=== PATIENT | female | born 1950 | race Caucasian/White ===

== ENCOUNTER 2025-06-01 16:52 | Emergency (ER) | payer OTHER, SELFPAY ==
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
[2025-06-01 17:11] VITALS: BP 185/81; PULSE 98; RESP 16; TEMP 36.2; O2SAT 96; BMI 24.8
[2025-06-01 17:58] LABS: MANUAL DIFF FLAG NO
[2025-06-01 18:01] LABS: Hematocrit 43.1 % (37.0-47.0); Hemoglobin 14.7 g/dl (12.0-16.0); Imm Gran Abs Auto 0.02 X10*3/uL (0.00-0.03); Imm Gran Pct Auto 0.3 % (0.0-0.4); Lymphocytes Absolute Auto 1.8 X10*3/uL (1.2-4.9); Mean Corpuscular HGB Conc 34.1 g/dl (31.0-35.0); Mean Corpuscular Hemoglobin 29.5 pg (27.0-33.0); Mean Corpuscular Volume 86.4 fL (80.0-98.0); NRBC Abs Auto 0.000 X10*3/uL (0.0-0.012); NRBC Pct Auto 0.0 /100WBC (0.0-0.2); Platelet Count 254 X10*3/uL (160-400); Red Blood Count 4.99 X10*6/uL (4.20-5.50); White Blood Count 6.6 X10*3/uL (4.8-10.8)
[2025-06-01 18:07] LABS: INTERNATIONAL NORM RATIO 1.0 (0.9-1.1); Prothrombin Time 12.2 SEC (11.2-13.5)
[2025-06-01 18:18] LABS: Anion Gap 12 (12-20); Blood Urea Nitrogen 18 mg/dL (9-16); Calcium 9.9 mg/dL (8.4-10.2); Carbon Dioxide 28 mmol/L (22-29); Chloride 106 mmol/L (96-108); Creatinine Clr Calc Pharmacy 52.5; Estimated Glomerular Filt Rate > 60; Potassium 3.7 mmol/L (3.3-5.1); Sodium 142 mmol/L (135-145)
--- OUTSIDE RECORDS SUMMARY | 2025-06-01 20:19 | XMS_ITS | Encounter Summary ---
Author Organization [facility] Address [address] [facility] [address] [place] [address] Phone Care Team Providers Care Switch Coupler Name Role Phone Kamila Novak Primary Care Provider Encounter Details Date Type Department Care Team (Late Contact Info) Description 12/22/2020 Orders Only [facility] [address] [facility] [address] [place] [phone] Dane Davis MD [address] [address] Ischemic nephropathy (HCC); Hypertension; Obstructive sleep apnea syndrome; Nonadherence to medical treatment; Overweight; Localized edema; Renovascular hypertension; Hypertensive heart disease without congestive heart failure; Chronic kidney disease stage 2 Social History Tobacco Use Types Packs/Day Years Used Date Smoking Tobacco: Never Smokeless Tobacco: Never Alcohol Use Standard Drinks/Week Comments No 0 (1 standard drink = 0.6 oz pur e alcohol) Comments Unknown Sex and Gender Information Value Date Recorded Sex Assigned at Not on file Legal Sex Female 5:15 PM EST Gender Identity Not on file Sexual Orientation Not on file documented as of this encounter Plan of Treatment Upcoming Encounters Date Type Department Care Team (Late st Contact Info) Description 06/28/2025 2:30 PM EST Office Visit [facility] [address] [facility] [address] [place] [address] Rachel Singh ARNP [address] [phone] documented as of this encounter Procedures Procedure Name Priority Date/Time Associated Diagnosis Comments VITAMIN D 25 HYDROXY Routine 01/01/2021 10:44 AM EDT Ischemic nephropathy (HCC) Hypertension Obstructive sleep apnea syndrome Nonadherence to medical treatment Overweight Localized edema Renovascular hypertension Hypertensive heart disease without congestive heart failure Chronic kidney disease stage 2 CBC AND DIFFERENTIAL Routine 01/01/2021 10:44 AM EDT Ischemic nephropathy (HCC) Hypertension Obstructive sleep apnea syndrome Nonadherence to medical treatment Overweight Localized edema Renovascular hypertension Hypertensive heart disease without congestive heart failure Chronic kidney disease stage 2 URIC ACID Routine 01/01/2021 10:44 AM EDT Ischemic nephropathy (HCC) Hypertension Obstructive sleep apnea syndrome Nonadherence to medical treatment Overweight Localized edema Renovascular hypertension Hypertensive heart disease without congestive heart failure Chronic kidney disease stage 2 PTH, INTACT Routine 01/01/2021 10:44 AM EDT Ischemic nephropathy (HCC) Hypertension Obstructive sleep apnea syndrome Nonadherence to medical treatment Overweight Localized edema Renovascular hypertension Hypertensive heart disease without congestive heart failure Chronic kidney disease stage 2 MAGNESIUM Routine 01/01/2021 10:44 AM EDT Ischemic nephropathy (HCC) Hypertension Obstructive sleep apnea syndrome Nonadherence to medical treatment Overweight Localized edema Renovascular hypertension Hypertensive heart disease without congestive heart failure Chronic kidney disease stage 2 RENAL FUNCTION PANEL Routine 01/01/2021 10:44 AM EDT Ischemic nephropathy (HCC) Hypertension Obstructive sleep apnea syndrome Nonadherence to medical treatment Overweight Localized edema Renovascular hypertension Hypertensive heart disease without congestive heart failure Chronic kidney disease stage 2 PROTEIN / CREATININE RATIO, URINE Routine 01/01/2021 10:43 AM EDT Ischemic nephropathy (HCC) Hypertension Obstructive sleep apnea syndrome Nonadherence to medical treatment Overweight Localized edema Renovascular hypertension Hypertensive heart disease without congestive heart failure Chronic kidney disease stage 2 documented in this encounter Results * Vitamin D 25 Hydroxy (01/01/2021 10:44 AM EDT) [facility] Vitamin D, 25-Hydroxy 25.2 (20-50) NG/ML [facility] Comment: Testing performed or reported by [facility], a Service of [address] [address] Sherif Tolbert MD, Electrical Sign Servicer Blood specimen (specimen) Venous blood / Unknown 01/01/2021 10:44 AM EDT 01/01/2021 10:47 AM EDT Dane Davis MD LAB BLOOD ORDERABLES Final Re sult Performing Organization Address [facility]/ZIP Co de Phone Number [facility] * Uric Acid (01/01/2021 10:44 AM EDT) [facility] Uric Acid 4.6 (1.6-7.6) MG/DL [facility] Comment: Testing performed or reported by [facility], a Service of [facility], [address] [place] [id number] Sherif Tolbert MD, Electrical Sign Servicer Blood specimen (specimen) Venous blood / Unknown 01/01/2021 10:44 AM EDT 01/01/2021 10:47 AM EDT Dane Davis MD LAB BLOOD ORDERABLES Final Re sult Performing Organization Address [facility]/ZIP Co de Phone Number [facility] * (ABNORMAL) Renal Function Panel (01/01/2021 10:44 AM EDT) [facility] Glucose 101(H) (70-99) MG/DL [facility] BUN 12 (8-23) MG/DL [facility] Creatinine 0.7 (0.5-1.0) MG/DL [facility] Sodium 141 (133-145) MMOL/L [facility] Potassium 4.4 (3.6-5.2) MMOL/L [facility] Chloride 104 (98-107) MMOL/L [facility] Bicarbonate (CO2) 25 (22-29) MMOL/L [facility] Anion Gap 12 (4-17) [facility] Albumin 4.4 (3.4-4.8) GM/DL [facility] Calcium 9.6 (8.6-10.5) MG/DL [facility] Phosphorus, Serum 3.4 (2.5-4.5) MG/DL [facility] Est GFR Non 83 ML/MIN/1.7 3 M2 [facility] Comment: Creatinine based estimated glomerular filtration rate (eGFR) is calculated using the Chronic Kidney Disease Epidemiology Collaboration (CKD-EPI). The CKD-EPI creatinine equation has not been validated in children (<18 years), women or in some racial or ethnic subgroups other than Caucasians and Americans. EST GFR 97 ML/MIN/1.7 3 M2 [facility] Comment: Creatinine based estimated glomerular filtration rate (eGFR) is calculated using the Chronic Kidney Disease Epidemiology Collaboration (CKD-EPI). The CKD-EPI creatinine equation has not been validated in children (<18 years), women or in some racial or ethnic subgroups other than Caucasians and Americans. Testing performed or reported by [facility], a Service of [facility], [address] [place] [phone] Sherif Tolbert MD, Electrical Sign Servicer Blood specimen (specimen) Venous blood / Unknown 01/01/2021 10:44 AM EDT 01/01/2021 10:47 AM EDT Result [facility] Dane Davis MD LAB BLOOD ORDERABLES Final Re sult Performing Organization Address [facility] de Phone Number [facility] * PTH, Intact (01/01/2021 10:44 AM EDT) PTH, Intact 61 (15-65) PG/ML [facility] Comment: Testing performed or reported by [facility], a Service of [facility], [address] [place] [id number] Sherif Tolbert MD, Electrical Sign Servicer Blood specimen (specimen) Venous blood / Unknown 01/01/2021 10:44 AM EDT 01/01/2021 10:47 AM EDT us Dane Davis MD LAB BLOOD ORDERABLES Final Re sult Performing Organization Address City/[facility] Co de Phone Number [facility] * Magnesium (01/01/2021 10:44 AM EDT) Pathologist [facility] Magnesium 2.1 (1.6-2.3) mg/dL [facility] Comment: Testing performed or reported by [facility], a Service of [facility], [address] [place] [id number] Sherif Tolbert MD, Electrical Sign Servicer Blood specimen (specimen) Venous blood / Unknown 01/01/2021 10:44 AM EDT 01/01/2021 10:47 AM EDT us Dane Davis MD LAB BLOOD ORDERABLES Final Re sult [facility] * (ABNORMAL) CBC and Differential (01/01/2021 10:44 AM EDT) [facility] White Blood Cells 7.9 (4.0-11.0) K/MM3 [facility] RBC 4.59 (4.20-5.40 ) M/MM3 [facility] Hgb 10.8(L) (11.7-15.5 ) GM/DL [facility] Hematocrit 35.7 (35.7-45.8 ) % [facility] MCV 77.8(L) (80.0-100. 0) [place] [facility] MCH 23.5(L) (27.0-34.0 ) PG [facility] MCHC 30.3(L) (33.0-37.0 ) g/dL [facility] Platelets 310 (150-460) K/MM3 [facility] RDW-SD 44.9 (<47.0) [place] [facility] MPV 12.7(H) (9.4-12.4) [place] [facility] nRBC Count 0.0 #/100 WBC'S [facility] NRBC Absolute 0.0 K/MM3 [facility] Neutrophils Abs Auto 4.8 (1.3-7.0) K/MM3 [facility] Lymphocytes Relative 2.3 (0.8-3.1) K/MM3 [facility] Monocytes 0.5 (0.4-0.9) K/MM3 [facility] Eosinophils Relative 0.1 (0.0-0.4) K/MM3 [facility] Basophil ABS 0.1 (0.0-0.1) K/MM3 [facility] Granulocytes Absolute 0.0 K/MM3 [facility] Neutrophils % Auto 61.3 (44-76) % [facility] Lymphs 29.4 (15-43) % [facility] Monocytes Absolute 6.7 (4.5-10.5) % [facility] Eosinophils 1.4 (0-6) % [facility] Basophils Relative 0.9 (0-2) % [facility] Immature Granulocytes 0.3 % [facility] Comment: Testing performed or reported by [facility], a Service of [address] [id number] Sherif Tolbert MD, Electrical Sign Servicer Blood specimen (specimen) Venous blood / Unknown 01/01/2021 10:44 AM EDT 01/01/2021 10:47 AM EDT Dane Davis MD LAB BLOOD ORDERABLES Final Re sult Performing Organization Address [facility] de Phone Number [facility] * Protein, Total, Random Urine w/Creatinine (Protein/Creat Ratio) (01/01/2021 10:43 AM EDT) Protein/Creatin e Ratio 0.07 (0-0.2) [facility] Protein, Urine 14 MG/DL [facility] Creatinine, Urine 199.1 MG/DL [facility] Comment: Testing performed or reported by [facility], a Service of [address] [phone] Sherif Tolbert MD, Electrical Sign Servicer Urine specimen (specimen) Urine specimen obtained by clean catch procedure / Unknown 01/01/2021 10:43 AM EDT 01/01/2021 10:47 AM EDT us Dane Davis MD LAB URINE ORDERABLES Final Re sult Performing Organization Address [facility] Co de Phone Number [facility] documented in this encounter Visit Diagnoses Diagnosis Ischemic nephropathy (HCC) Hypertension Obstructive sleep apnea syndrome Nonadherence to medical treatment Overweight Localized edema Renovascular hypertension Hypertensive heart disease without congestive heart failure Chronic kidney disease stage 2 documented in this encounter Care Teams Switch Coupler Relationship Specialty Start Date End Date Kamila Novak [address] [place] [id number] PCP - General 08/16/24 documented as of this encounter
--- OUTSIDE RECORDS SUMMARY | 2025-06-01 20:19 | XMS_ITS | Encounter Summary ---
Author Organization [facility] Address [address] [place] [address] Phone Care Team Providers Care Tour Director Name Role Phone Kamila Novak Primary Care Provider [phone] Encounter Details Date Type Department Care Team (Late st Contact Info) Description 08/16/2024 Documentation Only [facility], [address] [place] [phone] [place], [place] [address] [place] [address] Social History Tobacco Use Types Packs/Day Years [...] Visit [facility] [address] [address] Rachel Singh ARNP [address] [address] documented as of this encounter Visit Diagnoses Not on filedocumented in this encounter Care Teams Tour Director Relationship Specialty Start Date End Date Kamila Novak [address] [place] [id number] PCP - General 08/16/24 documented as of this encounter
--- OUTSIDE RECORDS SUMMARY | 2025-06-01 20:19 | XMS_ITS | Clinical Summary ---
Author Organization [facility] Address [address] [facility] [address] [place] [address] Phone Care Team Providers Care Quality Checker Name Role Phone Kamila Novak Primary Care Provider [phone] Allergies Active Allergy Reactions Criticality Noted Date Comments Amlodipine Rash Medium 10/21/2020 Aspirin 10/21/2020 Carvedilol 10/21/2020 Clopidogrel 10/21/2020 Codeine 10/21/2020 Iodinated Contrast Media 10/21/2020 Metoprolol 10/21/2020 Penicillins 10/21/2020 Prednisone 10/21/2020 Acetaminophen-Codeine 10/21/2020 Medications albuterol HFA (ProAir HFA) 108 (90 Base) MCG/ACT inhaler Comments: Filled Date: Sep 15 2014 12:00AM Patient Notes: INL 2 PUFFS PO QID PRF WHEEZING Duration: 25 01/01/2014 Active meclizine (ANTIVERT) 25 MG tablet Take 1 tablet by mouth 2 (two) times a day Active omeprazole (PriLOSEC) [address] capsule Take 1 capsule by mouth 2 (two) times a day Active spironolactone (ALDACTONE) 25 MG tablet Take 1 tablet by mouth 1 (one) time each day 05/09/2019 Active atorvastatin (LIPITOR) 40 MG tablet TAKE 1 TABLET BY MOUTH DAILY AT BEDTIME 08/24/2020 Active cloNIDine (CATAPRES) 0.1 MG tablet Take 1 tablet (0.1 mg total) by mouth 3 times a day 270 tablet 3 10/22/2020 Active sertraline (ZOLOFT) 50 MG tablet TAKE 1 TABLET BY MOUTH DAILY LABEL ALL SCRIPTS IN [place] 12/03/2020 Active amLODIPine (NORVASC) 10 MG tablet TAKE 1 TABLET BY MOUTH EVERY DAY 90 tablet 3 08/17/2021 Active lisinopril 40 MG tablet TAKE 1 TABLET BY MOUTH EVERY DAY 91 tablet 3 08/17/2021 Active Acetaminophen 325 MG capsule Take 325 mg by mouth 06/19/2021 Active Active Problems Problem Noted Date Diagnosed Date Ischemic nephropathy 10/22/2020 Obstructive sleep apnea syndrome 10/22/2020 Patient's noncompliance with other medical treatment and regimen due to unspecified reason 10/22/2020 Overweight 10/22/2020 Chronic kidney disease stage 2 10/21/2020 Hypertension 10/21/2020 Localized edema 10/21/2020 Renovascular hypertension 10/21/2020 Resolved Problems Problem Noted Date Diagnosed Date Resolved Date Essential hypertension 10/21/202010/22 Hypertensive heart disease w [facility] congestive heart failure 10/21/2020 02/03/2021 Immunizations Immunization Administration Dates Next Due Influenza Split High Dose Preservative Free IM 0 08/30/2007 Pneumococcal Polysaccharide 08/30/2007 Tdap 09/27/2007 Family History Medical History Relation Comments Heart disease Mother [place] Hypertension Mother Diabetes Sibling 1 2 brothers Hypertension Sibling 2 2 brother Heart disease Sibling 3 2 brothers Relation Status Comments Father Mother Sibling 1 Sibling 2 Sibling 3 Social History Tobacco Use Types Packs/Day Years Used Date Smoking Tobacco: Never Smokeless Tobacco: Never Alcohol Use Standard Drinks/Week Comments No 0 (1 standard drink = 0.6 oz pur e alcohol) Comments Unknown Sex and Gender Information Value Date Recorded Sex Assigned at Not on file Legal Sex Female 5:15 PM EST Gender Identity Not on file Sexual Orientation Not on file Last Filed Vital Signs Vital Sign Reading Time Taken Comments Blood Pressure 130/80 09/10/2021 10:57 AM EDT Pulse 74 09/10/2021 10:57 AM EDT Temperature - - Respiratory Rate - - Oxygen Saturation 94% 09/10/2021 10:57 AM EDT Inhaled Oxygen Concentration - - Weight 73.8 kg (162 lb 9.6 oz) 09/10/2021 10:57 AM EDT Height 160 cm (5' 3 ) 03/12/2021 9:22 AM EDT Body Mass Index 28.8 03/12/2021 9:22 AM EDT Plan of Treatment Upcoming Encounters Date Type Department Care Team (Late st Contact Info) Description 06/28/2025 2:30 PM EST Office Visit [facility] [address] [facility] [address] [place] [address] SinghRachelJOEY [address] [facility] [address] [place] [address] Health Maintenance Due Date Last Done Comments Breast Cancer Screening 1950 Colorectal Cancer Screening: Annual FOBT 1999 Colorectal Cancer Screening: Colonoscopy 1999 Colorectal Cancer Screening: Sigmoidoscopy 1999 Pneumococcal Vaccine: 50+ Years (3 of 3 - PCV20 or PCV21) 10/20/2019 08/25/2019, 08/30/2007 Diabetes: Ophthalmology Exam 09/10/2021 Diabetes: Pedal Pulse Checked 09/10/2021 Diabetes: Sensory Foot Exam 09/10/2021 Diabetes: Visual Foot Exam 09/10/2021 Diabetes: Hemoglobin A1C 11/14/2021 08/14/2021 Influenza Vaccine (#1) 2025 0, 08/30/2007, 08/30/2007 Pneumococcal Vaccine: Peds ( 0 to 5 Years) and At-Risk Patients (6 to 49 Years) Discontinued 08/25/2019, 08/30/2007 Hepatitis B Vaccine Aged Out No longe r eligible based on patient's age to complete this topic Procedures Procedure Name Priority Date/Time Associated Diagnosis Comments HEMOGLOBIN A1C Routine 08/14/2021 10:46 AM EST Chronic kidney disease stage 2 Renovascular hypertension Hypertension Localized edema Ischemic nephropathy (HCC) Obstructive sleep apnea syndrome Nonadherence to medical treatment Overweight from Last 3 Months or Most Recently Relevant to Health Maintenance Results * (ABNORMAL) Hemoglobin A1c (08/14/2021 10:46 AM EST) Hemoglobin A1C 6.4(H) (4.0-5.6) % [facility] Comment: MONITORING: In known diabetic patients, hemoglobin A1c targets should be discussed with health care provider. DIAGNOSTIC USE: The [place] Diabetes Association (ADA) and the World Health Organization (WHO) recommend the use of HbA1c to diagnose diabetes using a threshold of 6.5%. Patients who have an HbA1c between 5.7% and 6.4% are considered at increased risk for developing diabetes in the future. CAUTION: Falsely low HbA1c results may be observed in patients with hemolytic anemia, homozygous forms of abnormal hemoglobin (e.g. SS, CC, SC), , recent blood loss or hemoglobin F greater than 7%. Fructosamine may be used as an alternate test in these cases. REFERENCE: ADA: Standards of Medical Care in Diabetes 2020, The Journal of Clinical and Applied Research and Education Volume 43, Supplement 1 Testing performed or reported by [facility], a Service of [facility], [address] [place] [phone] Sherif Tolbert MD, Mine Motor Engineer [facility]# [id number] Blood specimen (specimen) Venous blood / Unknown 08/14/2021 10:46 AM EST 08/14/2021 10:48 AM EST us Dane Davis MD LAB BLOOD ORDERABLES Final Re sult [facility] from Last 3 Months or Most Recently Relevant to Health Maintenance Insurance Medicaid [place] Medicare Medicaid [place] Medicare Medicare Medicaid [place] Care Teams Quality Checker Relationship Specialty Start Date End Date Kamila Novak [address] [place] [id number] PCP - General 08/16/24
[2025-06-01 21:32] VITALS: BP 186/85; PULSE 72; RESP 16; O2SAT 99
[2025-06-01 22:09] VITALS: BP 186/85; PULSE 72; RESP 16; TEMP 36.6; O2SAT 99
== END 2025-06-01 22:09 | disposition home or self-care (01) ==
PROVIDERS: Physician Assistant; Emergency Provider Emergency Medicine Emergency Medical Services
DX: R07.9 Chest pain, unspecified (principal); M79.662 Pain in left lower leg; V43.62XA Car passenger injured in collision with other type car in traffic accident, initial encounter; Y93.89 Activity, other specified; Y92.488 Other paved roadways as the place of occurrence of the external cause; Y99.8 Other external cause status
CPT/HCPCS: 36415; 70450; 71046; 72125; 73590; 80048; 85025; 85610; 99283; 99284

== ENCOUNTER → 2025-06-01 17:16 | Outpatient (BNV) | payer MEDICARE, MEDICAID, SELFPAY | PROVIDERS: Visit Provider Radiology Diagnostic Radiology | DX: M50.322 Other cervical disc degeneration at C5-C6 level (principal); R51.9 Headache, unspecified; G93.89 Other specified disorders of brain; R07.9 Chest pain, unspecified; V89.2XXA Person injured in unspecified motor-vehicle accident, traffic, initial encounter; Z04.3 Encounter for examination and observation following other accident | CPT/HCPCS: 70450; 71046; 72125; 73590 ==